=== PATIENT | female | born 1970 | race Caucasian/White ===

== ENCOUNTER 2021-05-24 19:53 | Emergency (ER) | payer BC ==
[~2021-05-24] VITALS: Ht 172.7 cm; Wt 97.0 kg
[~2021-05-24 19:53] MED LIST: LORTAB5 PO; MECLIZINE25 MG PO; SILVADENE1 % EX
[2021-05-24] MEDS ORDERED: IBUPROFEN600 MG PO (21:19)
[2021-05-24 21:48] VITALS: BP 125/80
== END 2021-05-24 21:48 | disposition home or self-care (01) | DRG 563 ==
LOC: ED 19:53
DX: M23.91 Unspecified internal derangement of right knee (principal); S80.01XA Contusion of right knee, initial encounter; W07.XXXA Fall from chair, initial encounter; Y92.89 Other specified places as the place of occurrence of the external cause
CPT/HCPCS: L1830

== ENCOUNTER 2021-08-28 20:08 | Emergency (ER) | payer OTHER, BC ==
[~2021-08-28] VITALS: Ht 172.7 cm; Wt 113.0 kg
[~2021-08-28 20:08] MED LIST changes: +IBUPROFEN600 MG PO
[2021-08-28] MEDS ORDERED: GOUT MED (20:37)
[2021-08-28] MEDS ORDERED: CYCLOBENZAPRINE10 MG PO (23:55)
[2021-08-28] MEDS ORDERED: NAPROXEN500 MG PO (23:55)
[2021-08-28 23:57] VITALS: BP 140/85
== END 2021-08-29 00:05 | disposition home or self-care (01) | DRG 552 ==
LOC: ED 20:08
DX: S13.9XXA Sprain of joints and ligaments of unspecified parts of neck, initial encounter (principal); V58.5XXA Driver of pick-up truck or van injured in noncollision transport accident in traffic accident, initial encounter
CPT/HCPCS: L0120